=== PATIENT | female | born 1955 | race Caucasian/White ===

== ENCOUNTER 2017-01-13 08:03 | Day surgery (SDC) | payer OTHER ==
--- NOTE | ~2017-01-13 | OP ---
Record Of Operation [facility] [address] [place]. [address] NAME: JACKSON PARK : 57 STATUS : [facility]#: [id number] AGE: 61 ADM/REG DATE : 01/13/17 MR#: [id number] REPORT SERV DATE: 01/13/17 DICTATED BY: DOMINGO SINGH DATE: 01/13/17 REPORT STATUS : Draft TRANSCRIBED BY: MODIraj DATE: 01/13/17 DATE OF PROCEDURE: PREOPERATIVE DIAGNOSIS: Left breast cancer. POSTOPERATIVE DIAGNOSIS: Left breast cancer. PROCEDURE: 1. Placement of a right chest wall venous port. 2. Intraoperative fluoroscopy with interpretation. 3. Intraoperative ultrasound for vein access, internal jugular. INDICATION FOR THE PROCEDURE: Mrs. 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 The patient is a candidate for neoadjuvant chemotherapy, we will be starting that on Wednesday. A port will be placed today. OPERATIVE FINDINGS: After appropriate consent was noted on the chart, the patient was taken to the operating room in supine position. She was placed under monitored anesthesia without complication. The ultrasound was utilized to visualize the right internal jugular vein in its normal anatomic position and it was patent. The patient's right neck and chest wall were prepped and draped in sterile fashion. A draped ultrasound probe was again utilized to visualize the right internal jugular vein, which was accessed with a single pass of the Seldinger needle. Nonpulsatile venous appearing blood was noted in the syringe and the wire passed with ease. The needle was removed and the wire was secured to the drapes. The local anesthetic was utilized to anesthetize the port pocket and an incision was made with a #15 blade. Sharp dissection was carried down to the level of the fat and the port pocket was created without issue. Stay sutures were placed at the 3 o'clock and 9 o'clock positions with Prolene. An 11 blade was utilized to lengthen the vein access site in the neck and the tunneling device was utilized to create a tunnel and pulled the catheter through. The dilator with tear-away sheath were placed over the wire and the vein dilated with ease. The dilator and the wire were removed leaving the sheath in the vein. The catheter was placed into the sheath and the sheath torn away. The catheter was pulled back to length at the atriocaval junction. It was clipped for length at the port pocket and secured to the port with the securing device. Machuca needle was attached, heparinized saline was utilized to note the port aspirated and flushed with ease. It was flushed with heparinized saline and the placed into the port pocket. Stay sutures were secured, the wound was irrigated, and closed with two layers of Monocryl. The skin was cleansed and dried. Mastisol and Steri- Strips were applied. Telfa and Tegaderm overlaid. The patient was awoken from anesthesia without complication and taken the PACU in stable condition for recovery. She will obtain a chest x-ray in recovery as well. ESTIMATED BLOOD LOSS: 10 mL. COMPLICATIONS: None. Record Of Operation [address] [address] NAME: JACKSON PARK : 57 STATUS : [facility] PAT#: [id number] AGE: 61 ADM/REG DATE : 01/13/17 MR#: [id number] REPORT SERV DATE: 01/13/17 DICTATED BY: DOMINGO SINGH DATE: 01/13/17 REPORT STATUS : Draft TRANSCRIBED BY: GRETCHEN DATE: 01/13/17 SPECIMENS: None. YOHAN/GRETCHEN Domingo Singh MD / [id number] CC: MD Malu Ireland M.D. [facility] Wayne Isaac III, M.D.
[~2017-01-13 08:03] MED LIST: CELEXA20 PO; CIP5 PO; CO Q-10100 MG PO; COZ50 PO; CYANO1000T PO; FISH-EPA1000 MG PO; LIPITOR40 PO; LORTAB 5 PO; MAG-DELAY PO; MAG-SR535 MG PO; MULTI-VIT HP; MULTI-VIT HP PO; VIT D 3 PO; VITAMIN D31000 UNIT PO; ZYRTEC ALLGY10 MG PO
[2017-01-13 08:34] LABS: HEMATOCRIT 42.9 % (36.0-48.0); HEMOGLOBIN 14.1 g/dL (12.0-16.0)
[2017-01-13 08:45] LABS: ALBUMIN 3.7 G/DL (3.5-5.0); BUN (BLOOD UREA NITROGEN) 14 MG/DL (6-23); CHLORIDE, SERUM 107 MMOL/L (96-112); CO2 (CARBON DIOXIDE) 27 MMOL/L (24-34); CREATININE 0.82 MG/DL (0.55-1.02); GFR AFRICAN AMERICAN 90 ML/MIN (>=60); GFR NON AFRICAN AMERICAN 78 ML/MIN (>=60); GLOBULIN 3.7 G/DL (2.5-4.1); GLUCOSE, SERUM 108 MG/DL (60-99); POTASSIUM, SERUM 3.9 MMOL/L (3.5-5.3); SGOT(AST) 19 U/L (5-40); SGPT(ALT) 40 U/L (5-65); SODIUM, SERUM 142 MMOL/L (135-148); TOTAL BILIRUBIN 0.5 MG/DL (0-1.2); TOTAL PROTEIN 7.4 G/DL (6.0-8.5)
[2017-01-13 08:49] LABS: ALKALINE PHOSPHATASE 100 U/L (45-117)
[2017-05-27] MEDS ORDERED: VITC500 PO (10:11)
== END 2017-01-13 15:23 | disposition home or self-care (01) ==
LOC: SDC 08:03
PROVIDERS: Surgery Surgical Oncology
PROC: 05HM33Z Insertion of Infusion Device into Right Internal Jugular Vein, Percutaneous Approach (ICD-10-PCS; 2017-01-13)
PROC: B513YZA Fluoroscopy of Right Jugular Veins using Other Contrast, Guidance (ICD-10-PCS; 2017-01-13)
PROC: B543ZZA Ultrasonography of Right Jugular Veins, Guidance (ICD-10-PCS; 2017-01-13)
PROC: 0JH60XZ Insertion of Tunneled Vascular Access Device into Chest Subcutaneous Tissue and Fascia, Open Approach (ICD-10-PCS; principal; 2017-01-13 09:45)
DX: C50.412 Malignant neoplasm of upper-outer quadrant of left female breast (principal); I10 Essential (primary) hypertension; E78.5 Hyperlipidemia, unspecified; K21.9 Gastro-esophageal reflux disease without esophagitis; E78.00 Pure hypercholesterolemia, unspecified; F41.9 Anxiety disorder, unspecified; Z91.040 Latex allergy status; Z79.899 Other long term (current) drug therapy; Z90.89 Acquired absence of other organs; Z98.890 Other specified postprocedural states; Z87.442 Personal history of urinary calculi
CPT/HCPCS: 71010; 76000; 80053; 85014; 85018; 93005; C1751; J0690; J2250; J2405; J3010